=== PATIENT | female | born 1950 | race Caucasian/White ===

== ENCOUNTER 2017-03-01 22:46 | Emergency (ER) | payer MEDICARE ==
[2017-03-01 23:19] LABS: HEMOGLOBIN 13.8 gm/dl (12.3-15.3); RED BLOOD COUNT 4.5 M/UL (4.00-5.10); WHITE BLOOD COUNT 4.8 K/UL (4.5-11.0)
[2017-03-01 23:41] LABS: BUN/CREATININE RATIO 16 (0-10)
== END 2017-03-02 02:10 | disposition home or self-care (01) ==
LOC: ER1 22:46
PROVIDERS: Family Medicine
DX: H81.399 Other peripheral vertigo, unspecified ear (principal); I10 Essential (primary) hypertension; Z79.899 Other long term (current) drug therapy
CPT/HCPCS: 36415; 70450; 80053; 82550; 82553; 83874; 84484; 85025; 96374; 99284; J2405

== ENCOUNTER → 2017-05-17 | Outpatient (CLI) | payer MEDICARE | LOC: HEART 5 09:20 | DX: I49.5 Sick sinus syndrome (principal); R00.1 Bradycardia, unspecified; I51.7 Cardiomegaly; I34.0 Nonrheumatic mitral (valve) insufficiency; I27.2 Other secondary pulmonary hypertension; I37.1 Nonrheumatic pulmonary valve insufficiency; I07.1 Rheumatic tricuspid insufficiency | CPT/HCPCS: 93306 ==

== ENCOUNTER → 2022-06-03 | Outpatient (CLI) | payer OTHER | LOC: KOH-I 09:20 | DX: M54.50 Low back pain, unspecified (principal); M47.816 Spondylosis without myelopathy or radiculopathy, lumbar region | CPT/HCPCS: 72100 ==

== ENCOUNTER → 2022-06-12 | Outpatient (CLI) | payer OTHER | LOC: KOH-I 15:27 | DX: M54.50 Low back pain, unspecified (principal); K59.00 Constipation, unspecified; N81.89 Other female genital prolapse | CPT/HCPCS: 74176 ==